=== PATIENT | female | born 1960 | race Caucasian/White ===

== ENCOUNTER 2023-11-22 10:55 | Emergency (ER) | payer OTHER, SELFPAY ==
--- NOTE | 2023-11-22 11:03 | ED.LOWEXIN ---
HPI - Extremity Injury (Lower) <Emily Burgess PA-C - Last Filed: 11/22/23 12:57> General Chief Complaint: Extremity Injury, Lower Stated Complaint: Fell this morning baseball lump on right knee Time Seen by Provider: 11/22/23 11:03 History of Present Illness HPI Narrative: Patient is a very pleasant 63 year female presents to the emergency department today with complaint concern of soft tissue swelling and bruising to the right knee. 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 She fell striking the bridge of her nose, her chin, both of her knees. She has a large abrasion to the left knee, she cleaned and bandaged that. However she presents to the emergency department today because she is concerned about the large amount of swelling to the dorsal aspect of her right knee. It is quite bruise, she says it was much larger than it is currently at this point in time. She has been doing ice the knee, she took Advil prior to being seen here in the emergency department. No other further complaints. Related Data Allergies Allergy/AdvReac Type Severity Reaction Status Date / Time No Known Drug Allergies Allergy Verified 11/22/23 11:09 Review of Systems <Emily Burgess PA-C - Last Filed: 11/22/23 12:57> Review of Systems Narrative: Negative except as above Musculoskeletal Comments: Multiple musculoskeletal complaints. Soft tissue bruising and pain to the right knee, large abrasion and pain to the left knee. Integumentary/Breasts Comments: Abrasion to the skin on the left knee, abrasion to the bridge of her nose, abrasion underneath her chin. Patient History <Emily Burgess PA-C - Last Filed: 11/22/23 12:57> Social History Smoking Status: Never smoker Exam <Emily Burgess PA-C - Last Filed: 11/22/23 12:57> Initial Vital Signs Initial Vital Signs: Vital Signs Temperature 97.5 F L 11/22/23 11:09 Pulse Rate 63 11/22/23 11:09 Respiratory Rate 18 11/22/23 11:09 Blood Pressure 147/65 H 11/22/23 11:09 Pulse Oximetry 98 11/22/23 11:09 Oxygen Delivery Method Room Air 11/22/23 11:09 Const General: cooperative, healthy appearing, comfortable, well developed, well groomed, No acute distress and No in distress Nutritional Appearance: average body habitus and overweight [facility] Head: normal to inspection and other (Abrasion on the bridge of her nose, small abrasion on her chin.) Eyes General: Yes appearance normal, both eyes and all related structures Pupils: PERRL EOM: EOM intact bilaterally Skin Other: Large abrasion to the left knee, abrasion to her chin. Small abrasion on the bridge of her nose. Neuro General: patient alert, patient awake, patient oriented x3, oriented and gait normal Cranial Nerves: CN's II-XI intact bilaterally Cognition: normal cognition Speech: speech normal Gait: normal gait Motor: muscle tone normal throughout and strength 5/5 throughout Extrem Other: Upper extremities are within normal limits, pulses, cap refill, strength are preserved. Bilateral lower extremities, range of motion, strength, pulses, cap refill preserved. Left knee large abrasion to the dorsal aspect of the knee. Some minor soft tissue swelling and minor ecchymosis. She is some old bruising along the left golden from a [place] a week ago [place]. The right knee is quite edematous, bruising is noted, it appears with examination that the patient has a large hematoma to the knee joint. Limited range motion due to discomfort and pain. No obvious deformity. <Penine Hansen MD - Last Filed: 11/22/23 18:32> Initial Vital Signs Initial Vital Signs: Vital Signs Temperature 97.5 F L 11/22/23 11:09 Pulse Rate 63 11/22/23 11:09 Respiratory Rate 18 11/22/23 11:09 Blood Pressure 147/65 H 11/22/23 11:09 Pulse Oximetry 98 11/22/23 11:09 Oxygen Delivery Method Room Air 11/22/23 11:09 Procedures <Emily Burgess PA-C - Last Filed: 11/22/23 12:57> Laceration Repair Laceration 1: Time of procedure: 11:32 Site: lower extremity (Left knee) Side (If applicable): left Size (cm): 2.5 Description: linear Depth: simple, single layer Local Anesthetic: lidocaine 1% and with epi Amount of anesthesia used (mL): 5 Skin layer closed with: nylon Skin layer suture size: 4-0 Number of sutures: 1 Technique: running Scores <Emily Burgess PA-C - Last Filed: 11/22/23 12:57> GCS Citation: 15 Course <Emily Burgess PA-C - Last Filed: 11/22/23 12:57> Orders Ordered: ED Orders 11/22/23 11:08 XR knee RT 3V Stat Discontinued Medications Diphtheria/Tetanus/Acell Pertussis (Tet,Diph,Pertuss(Acell),Vac/Pf 0.5 Ml Syringe) 0.5 ml IM .ONCE ONE Stop: 11/22/23 11:23 Last Admin: 11/22/23 11:30 Dose: 0.5 ml Documented By: ES Vital Signs Vital signs: Vital Signs - 8 hr 11/22/23 11:09 Temperature 97.5 F L Pulse Rate 63 Respiratory Rate 18 Blood Pressure 147/65 H Pulse Oximetry 98 Oxygen Delivery Method Room Air Blood pressure 147/65, heart rate 63 regular, respiratory rate 18 and unlabored, temperature 97.5?, saturations 98% on room air. <Pennie Hansen MD - Last Filed: 11/22/23 18:32> Orders Ordered: ED Orders 11/22/23 11:08 XR knee RT 3V Stat Discontinued Medications Diphtheria/Tetanus/Acell Pertussis (Tet,Diph,Pertuss(Acell),Vac/Pf 0.5 Ml Syringe) 0.5 ml IM .ONCE ONE Stop: 11/22/23 11:23 Last Admin: 11/22/23 11:30 Dose: 0.5 ml Documented By: ES Vital Signs Vital signs: Vital Signs - 8 hr 11/22/23 11:09 Temperature 97.5 F L Pulse Rate 63 Respiratory Rate 18 Blood Pressure 147/65 H Pulse Oximetry 98 Oxygen Delivery Method Room Air MDM - Extremity Injury (Lower) <Emily Burgess PA-C - Last Filed: 11/22/23 12:57> Imaging Data Extremity x-ray #1: My Impression: Negative for acute fracture, large joint effusion, on exam large right knee hematoma. No patellar fracture. Radiologist's Impression: [address] [address] XRay Report Signed Patient: Didi Pimentel#: [id number] : 1960 Acct:[id number] Age/Sex: 63 / F Date of Service: 11/22/23 Loc: ED Accession Number: [id number] Procedure: XR knee RT 3V Ordering Provider: Emily Burgess PA-C PROCEDURE: XR KNEE RT 3V INDICATIONS: Patient tripped fell direct blow to both of the knees pain s TECHNIQUE: 3 views of the knee were acquired. COMPARISON: None. FINDINGS: Bones: No acute fractures or dislocations. Small peripherally sclerotic lesion projects over the lateral femoral condyle, most likely benign. Soft tissues: No joint effusion. No suspicious soft tissue calcifications. Prepatellar soft tissue swelling is present. IMPRESSION: No acute osseous abnormality. Nonspecific prepatellar soft tissue edema or prepatellar bursal effusion. Approved by: Pascual Barnes M.D. on 11/22/2023 at 12:22 MDM Narrative Medical decision making narrative: 63-year-old female status post a fall today at work, patient tripped. Patient struck her face no loss of consciousness. Small abrasion to the bridge of her nose, chin, large abrasion to the dorsal aspect of her left knee, moderate joint effusion, hematoma, soft tissue swelling to the dorsal aspect of the right knee. Patient has been doing osbk-flq-lvzctza supportive therapy. Patient drove here from [place]. [facility] prior to being seen here in the emergency department. And the patient has had ice on her right knee. Concerned due to the soft tissue swelling which actually has improved since she initially fell this morning. Wound care to the left knee X-ray of the right knee to evaluate for patellar fracture negative fracture Patient has large joint hematoma to the right knee Tetanus Laceration repair Differential diagnosis; fall, multiple abrasions noted with the fall. Large right knee hematoma. Evaluation of the left knee after we take the dressing down shows the patient has a large 2-1/2 inch deep laceration to the dorsal aspect of the left knee right across the patellar area. The wound is flushed and cleaned, sutured as above. Discharge Plan Departure Patient Disposition: Home Clinical Impression: Abrasion Fall Qualifiers: Encounter type: initial encounter Qualified Code(s): W19.XXXA - Unspecified fall, initial encounter Traumatic hematoma of right knee Qualifiers: Encounter type: initial encounter Qualified Code(s): S80.01XA - Contusion of right knee, initial encounter Laceration of knee, left Qualifiers: Encounter type: initial encounter Qualified Code(s): S81.012A - Laceration without foreign body, left knee, initial encounter Instructions: How to Care for a Laceration After Repair, DI for Knee Sprain Activity Restrictions/Additional Instructions: Rest, ice, elevation, compression with an Dominic wrap to help with the hematoma. Daily wound care with your abrasions, can wash them with soap, keep them covered. Minimal usage of Neosporin I would limited to 2-3 days. Some people can have a allergic reaction or secondary infection associated with too much Neosporin usage. You can pat the area dry after he washed the that apply coverage. Lqvu-jlq-xrkhdnd Tylenol, Aleve, Advil for discomfort pain to the knee. The more that you ambulate on the knee, walk, and allow the leg to hang the more that the knee will swell. Swelling will improve over the next 7-10 days. Please be advised the bruising will get worse and most likely will travel down the leg this is associated with gravity. Knee hematoma when you have this blood just needs to be broken down reabsorbed into the body. The swelling will go down. Compression helps this because it allows for not only support of the area but it allows the body to increase the blood quicker. It also give support and pain relief. Stitches need to come out in 7-10 days. They are not dissolvable. You can shower. You can get the area wet, just pat the area dry, and then cover it. The stitches can be removed either in walk-in clinic, the urgent care, or the emergency room department, or your primary care doctor's office. If you choose to come to the emergency room department please come relatively early somewhere around 7-8 o'clock in the morning it will only take a couple of minutes to take the stitches out. I would hate for you to come any other time then have to sit for hours on end for procedure that is only going to take about 5 minutes. Tetanus good for 10 years Stand Alone Forms: Patient Portal/API ED Sign-out <Pennie Hansen MD - Last Filed: 11/22/23 18:32> Cosign ED Attending Cosignature Attestation: I was immediately available in the department for consultation throughout this patient's visit. Pennie Hansen MD
--- NOTE | 2023-11-22 11:08 | DI.RAD.S_ITS ---
PROCEDURE: XR KNEE RT 3V INDICATIONS: Patient tripped fell direct blow to both of the knees pain s TECHNIQUE: 3 views of the knee were acquired. COMPARISON: None. FINDINGS: Bones: No acute fractures or dislocations. Small peripherally sclerotic lesion projects over the lateral femoral condyle, most likely benign. Soft tissues: No joint effusion. No suspicious soft tissue calcifications. Prepatellar soft tissue swelling is present. IMPRESSION: No acute osseous abnormality. Nonspecific prepatellar soft tissue edema or prepatellar bursal effusion. Approved by: Pascual Barnes M.D. on 11/22/2023 at 12:22
[2023-11-22 11:09] VITALS: BP 147/65; PULSE 63; RESP 18; TEMP 36.4; O2SAT 98; BMI 29.1
[2023-11-22] MEDS: TET,DIPH,PERTUSS(ACELL),VAC/PF 0.5 ML SYRINGE IM (11:30)
== END 2023-11-22 12:37 | disposition home or self-care (01) ==
PROVIDERS: Emergency Provider Physician Assistant; Referring Provider Physician Assistant
DX: S80.01XA Contusion of right knee, initial encounter (principal); S81.012A Laceration without foreign body, left knee, initial encounter; S00.31XA Abrasion of nose, initial encounter; S00.81XA Abrasion of other part of head, initial encounter; W01.0XXA Fall on same level from slipping, tripping and stumbling without subsequent striking against object, initial encounter; Z23 Encounter for immunization
CPT/HCPCS: 12001; 73562; 90471; 99283; 90715

== ENCOUNTER 2023-12-01 07:39 | Emergency (ER) | payer OTHER, SELFPAY ==
--- NOTE | 2023-12-01 08:17 | ED_ITS ---
HPI - General Adult General Chief complaint: Recheck/Abnormal Lab/Rx Stated complaint: needs stitches removed Time Seen by Provider: 12/01/23 08:17 History of Present Illness HPI narrative: 63-year-old female seen here 11/22/2023 with fall injury, bruising to the right knee, laceration to left knee, suturing of prepatellar skin laceration left knee, here for suture removal. Some redness around laceration anterior left knee cap area noted, superior aspect with some scant abrasion. No fevers. No streaking redness. She can bend her knee. Wound has not obviously . Related Data Previous Rx's Medication Instructions Recorded cephalexin 500 mg capsule 500 mg PO QID 7 days #28 caps 12/01/23 Allergies Allergy/AdvReac Type Severity Reaction Status Date / Time No Known Drug Allergies Allergy Verified 11/22/23 11:09 Review of Systems Review of Systems Narrative: see HPI Patient History Social History Smoking Status: Never smoker Smoking Status: Never smoker Substance Use Type: does not use Exam Narrative Exam Narrative: GENERAL: Well-developed patient, in mild distress. HEAD: Atraumatic. Normocephalic. EYES: Pupils equal round and reactive. Extraocular motions intact. No scleral icterus. No injection or drainage. ENT: Nose without bleeding, purulent drainage. Throat without erythema, tonsillar hypertrophy or exudate. Airway patent. NECK: Trachea midline. Non tender CARDIOVASCULAR: Regular rate and rhythm without murmurs, gallops, or rubs. RESPIRATORY: Clear to auscultation. Breath sounds equal bilaterally. No wheezes, rales, or rhonchi. GASTROINTESTINAL: Abdomen soft, non-tender, nondistended. EXTREMITIES: Bruising to the right knee, no obvious gross effusion. Vertical midline left prepatellar laceration proximally 3 cm, with sutures intact, roman rrounding erythema approximately 8 cm total diameter around the wound consistent with cellulitis, no obvious fluctuance or weeping, no expressible fluid. Shallow ulcer 1 cm on cephalad aspect, no expressible fluid there. No gross effusion on that knee either. Can flex left knee to 90? without difficulty. BACK: Nontender without deformity or crepitance. No flank tenderness. NEURO: AOx3. Motor functions grossly nonfocal SKIN: No rash or erythema of visible areas Initial Vital Signs Initial Vital Signs: Vital Signs Temperature 98.4 F 12/01/23 08:18 Pulse Rate 78 12/01/23 08:18 Respiratory Rate 18 12/01/23 08:18 Blood Pressure 139/71 12/01/23 08:18 Pulse Oximetry 97 12/01/23 08:18 Oxygen Delivery Method Room Air 12/01/23 08:18 Course Orders Ordered: Discontinued Medications Cephalexin HCl (Cephalexin 250 Mg Capsule) 500 mg PO NOW ONE Stop: 12/01/23 08:23 Last Admin: 12/01/23 08:51 Dose: 500 mg Documented By: NADIA Vital Signs Vital signs: Vital Signs - 8 hr 12/01/23 08:18 Temperature 98.4 F Pulse Rate 78 Respiratory Rate 18 Blood Pressure 139/71 Pulse Oximetry 97 Oxygen Delivery Method Room Air Medical Decision Making MDM Narrative Medical decision making narrative: 63-year-old female had fall injury 11/22/2023, suturing of left prepatellar skin laceration, here for suture removal. Also noted to have some redness around the wound, no expressible fluid, no knee effusion. No arthrocentesis indicated. Consider cellulitis, trial of Keflex, 1st dose now, prescription sent to her pharmacy. Wound check advised next 2-3 days. Return precautions discussed RN removed most sutures, two small strands residual. I tried pulling them, not moving, trimmed at surface skin, possible small retained suture fragment, patient aware. Discharge Plan Departure Patient Disposition: Home Clinical Impression: Cellulitis of left knee, Visit for suture removal Instructions: DI for Suture Removal Activity Restrictions/Additional Instructions: Recent fall evaluation 11/22/2023 with left knee laceration that was sutured, here for suture removal, noting also there some redness without a lot of warmth around the left knee wound, possible cellulitis skin infection. I could not express any fluid. This did not seem to be any fluctuance. The knee joint itself did not seem to have obvious fluid by examination. It does not seem to be a reason to tap the knee joint itself today. Trial of antibiotics to help clear the infection. Sutures removed, Steri-Strips placed. Consider wound check in 2-3 days with your regular provider. Return earlier to this/nearest emergency department for any change worsening symptoms or any concerns prior Two spots on sutures had some adherent suture not pulling through, not obviously connected, we pulled the suture taut and pushed down with a suture scissors to snip the end. It is possible there could be small segments of retained suture material foreign body that is nonabsorbable by the appearance of the nylon type strain. It is possible retained foreign body material could cause infection, given abscess that might need drainage, also sometimes the body we will wall off these areas and eventually spit out the foreign body. Prescriptions: New cephalexin 500 mg capsule 500 mg PO QID 7 Days Qty: 28 0RF Stand Alone Forms: Patient Portal/API
[2023-12-01 08:18] VITALS: BP 139/71; PULSE 78; RESP 18; TEMP 36.9; O2SAT 97; BMI 28.7
[2023-12-01] MEDS: cephALEXin 250 MG CAPSULE 500 MG PO (08:51)
[2023-12-01 09:10] VITALS: BP 133/69; PULSE 80; RESP 20; TEMP 36.6; O2SAT 100
== END 2023-12-01 09:11 | disposition home or self-care (01) ==
PROVIDERS: Emergency Provider Emergency Medicine
DX: S81.011D Laceration without foreign body, right knee, subsequent encounter (principal); L03.116 Cellulitis of left lower limb; W19.XXXD Unspecified fall, subsequent encounter
CPT/HCPCS: 99283

== ENCOUNTER 2024-12-06 10:24 | Emergency (ER) | payer MEDICARE, OTHER, SELFPAY ==
[2024-12-06] VITALS (23 sets, daily range): BP systolic 141–176; BP diastolic 75–98; PULSE 68–88; RESP 14–26; TEMP 36.2; O2SAT 93–100; BMI 21.5
--- NOTE | 2024-12-06 10:53 | EKG_ITS ---
[place] [id number] [place] [id number] Test Date: 2024-12-06 Pat Name: Didi Pimentel Department: [facility] Room: Gender: Female [employer] Teacher: DIANE : 1960 Requested By: Order Number: [id number] Reading MD: Talon Henao MD Measurements Intervals [place] Rate: 72 P: 51 AL: 188 QRS: -20 QRSD: 82 T: 59 QT: 448 QTc: 490 Interpretive Statements Normal sinus rhythm Minimal voltage criteria for LVH, may be normal variant ( Maksim product ) Prolonged QT Electronically Signed On 12-07-2024 7:19:17 PDT by Talon Henao MD
--- NOTE | 2024-12-06 10:53 | DI.CT.S_ITS ---
PROCEDURE: CT HEAD/BRAIN WO CON INDICATIONS: severe migraine TECHNIQUE: Noncontrast 4.5 mm thick angled axial sections acquired from the foramen magnum to the vertex, with coronal and sagittal reformats. For radiation dose reduction, the following was used: automated exposure control, adjustment of mA and/or kV according to patient size. COMPARISON: None. FINDINGS: Image quality: Diagnostic. CSF spaces: Basal cisterns are patent. No extra-axial fluid collections. The ventricles are symmetric in size and shape. Brain: There is a moderate to severe volume of subarachnoid hemorrhage seen involving the left frontal lobe and the left temporal lobe. No intracranial mass effect. There is cerebral volume loss, with resultant ventricular and sulcal prominence. There are periventricular and deep white matter chronic small vessel ischemic changes. There is intracranial internal carotid artery atherosclerosis. Skull and face: Calvarium and visualized facial bones appear intact, without suspicious lesions. Sinuses: Visualized sinuses and mastoids are clear. IMPRESSION: There is a moderate to severe volume of subarachnoid hemorrhage seen on the left, involving the frontal lobe and the temporal lobe. Note: Case discussed by telephone with Dr. Keller at 11:22 a.m. [place] time on December 06, 2024. Dictated by: Wilian Corrigan M.D. on 12/06/2024 at 10:20 Approved by: Wilian Corrigan M.D. on 12/06/2024 at 10:23
--- NOTE | 2024-12-06 10:53 | DI.CT.S_ITS ---
PROCEDURE: CT ANGIO HEAD AND NECK INDICATIONS: severe migraine. Subarachnoid hemorrhage on CT. TECHNIQUE: After the administration of intravenous contrast, 1 mm thick sections acquired from the aortic arch through the [place] of Vasquez. 3-dimensional umeetej-cgnhvqlcb-sparzmmwzs (MIP) and/or volume rendering reformats were acquired of the central intracranial vasculature and neck separately. For radiation dose reduction, the following was used: automated exposure control, adjustment of mA and/or kV according to patient size. COMPARISON: Merged With [facility], CT, CT HEAD/BRAIN WO [facility], 12/06/2024, 11:02. FINDINGS: Image quality: Diagnostic. Cerebral CT Angiogram: Internal carotid arteries: No acute findings. Intracranial ICA are patent with no significant stenosis. No occlusion. No aneurysm. Anterior cerebral arteries: Unremarkable. No significant stenosis. No occlusion. No aneurysm. Middle cerebral arteries: Unremarkable. No significant stenosis. No occlusion. No aneurysm. Posterior cerebral arteries: Unremarkable. No significant stenosis. No occlusion. No aneurysm. Basilar artery: Unremarkable. No significant stenosis. No occlusion. No aneurysm. Vertebral arteries: Unremarkable as visualized. Dural venous sinuses: Unremarkable given phase of enhancement. Other: Arterial phase appearance of the brain parenchyma in conjunction with the noncontrast CT demonstrates the presence of subarachnoid hemorrhage in the left frontal, temporal, parietal region. Neck CT Angiogram: Internal carotid arteries: Unremarkable. No significant stenosis. No dissection or occlusion. Common carotid arteries: Unremarkable. No significant stenosis. No dissection or occlusion. External carotid arteries: Unremarkable. No occlusion. Vertebral arteries: Unremarkable. No significant stenosis. No dissection or occlusion. Aortic Arch and Mediastinum: Partially visualized aortic arch unremarkable without evidence of aneurysm. Origins of the great vessels unremarkable. Other: Arterial phase soft tissues of the neck and chest are unremarkable. IMPRESSION: No significant intracranial arterial abnormality is seen. Specifically, no aneurysms are identified. No significant abnormality is seen within the arteries of the neck. Comment: Consider brain MRI with and without contrast. Any quantitative measurements of stenosis were performed using NASCET criteria. Dictated by: Lyle Love M.D. on 12/06/2024 at 12:14 Approved by: Lyle Love M.D. on 12/06/2024 at 12:27
[2024-12-06 11:05] LABS: Add Manual Diff / Slide Review NO; Hematocrit 42.6 % (36-46); Hemoglobin 14.2 g/dL (12.0-16.0); Lymphocytes Absolute Auto 1500 /uL (1100-4500); Mean Corpuscular HGB Conc 33.3 % (30-36); Mean Corpuscular Hemoglobin 28.7 PG (26-34); Mean Corpuscular Volume 86.2 fL (80-100); Platelet Count 194 X10^3/uL (150-400)
--- NOTE | 2024-12-06 11:07 | ED_ITS ---
HPI - Neuro Symptoms/Deficit General Chief Complaint: Neuro Symptoms/Deficit Stated Complaint: Migraine x 1 day vomiting Time Seen by Provider: 12/06/24 10:53 Mode of arrival: Wheelchair History of Present Illness HPI Narrative: Patient is a 64-year-old female history of migraines presenting today with severe atypical migraine. She reports that her headache started yesterday around 1:00 p.m.. She usually takes rizatriptan and headaches go away. She has never had not work. However her headache has been persisting. She is feeling a little bit nauseous as well. Last night she had double vision in her right eye as well. Has been reports that she had bilateral arm shaking but was awake alert no other shaking in her body. Today ongoing headache. Not on antiplatelet or anticoagulation medication On Anticoagulants: No Related Data Allergies Allergy/AdvReac Type Severity Reaction Status Date / Time No Known Drug Allergies Allergy Verified 12/06/24 10:41 Review of Systems Hematologic/Lymphatic On Anticoagulants: No Patient History Social History Smoking Status: Unknown if ever smoked Smoking Status: Unknown if ever smoked Exam Initial Vital Signs Initial Vital Signs: Vital Signs Temperature 97.2 F L 12/06/24 10:44 Pulse Rate 88 12/06/24 10:44 Respiratory Rate 14 12/06/24 10:44 Blood Pressure 149/92 H 12/06/24 10:44 Pulse Oximetry 98 12/06/24 10:44 Oxygen Delivery Method Room Air 12/06/24 10:44 GENERAL: Alert well-appearing 64-year-old female and in no acute distress. HEENT: Head atraumatic,EOMI, pupils reactive, face symmetric, moist mucous membranes CARDIOVASCULAR: Regular rate and rhythm without murmurs, rubs or gallops. RESPIRATORY: Breath sounds equal bilaterally, no wheezes rales or rhonchi. ABDOMEN: Soft, nontender. Normoactive bowel sounds all 4 quadrants. No guarding or rebound. EXTREMITIES: Normal range of motion, no clubbing or edema. Neurovascularly intact NEUROLOGICAL: Alert and oriented x4.Normal gait and speech. Cranial nerves II through XII grossly intact. Good [id number], good [id number], strength equal bilaterally, no dysarthria or aphasia, sensation in tact to soft touch bilaterally, no visual changes, no facial droop SKIN: Warm, dry, no laceration, no petechiae, no rashes or lesions. Scores GCS [place] coma scale eye opening: Spontaneous [place] coma scale verbal response: Orientated [place] coma scale motor response: Obey commands [place] coma scale total score: 15 NIH Stroke Scale Level of Conciousness: Alert, keenly responsive Ask month/age: Answers both questions correctly. Open/close eyes, close hand: Performs both tasks correctly Best gaze horizontal: Normal Visual boyer: No visual loss Facial palsy: Normal symetrical movement Left arm drift: No drift for full 10 sec Right arm drift: No drift for full 10 sec Left leg drift: No drift for full 5 sec Right leg drift: No drift for full 5 sec Limb ataxia: Absent Sensory on face/arms/legs: Normal, no sensory loss Best language: No aphasia, normal Dysarthria: Normal Extinction or inattention: No abnormality Total NIH Stroke scale score: 0 Course Orders Ordered: ED Orders 12/06/24 10:53 CT angio head and neck Stat CT head/brain wo con Stat Urinalysis and Microscopic Stat EKG-12 Lead Stat 12/06/24 10:55 Complete Blood Count AUTO DIFF Stat Comprehensive Metabolic Panel Stat Ethanol (ETOH) Stat PTT Partial Thromboplastin Stefano Stat Prothrombin Time INR Stat Troponin & CK Cardiac Panel Stat Morphine Sulfate (Morphine 4 Mg/Ml Inj) 2 mg IV Q2HR PRN PRN Reason: Pain, Moderate (4-6) Last Admin: 12/06/24 12:04 Dose: 2 mg Documented By: LEANNE Discontinued Medications Labetalol HCl (Labetalol 20 Mg/4 Ml Syringe) 10 mg IV NOW ONE Stop: 12/06/24 11:59 Last Admin: 12/06/24 12:04 Dose: 10 mg Documented By: LEANNE Morphine Sulfate (Morphine 2 Mg/Ml Inj) 2 mg IV Q2HR PRN PRN Reason: Pain, Moderate (4-6) Ondansetron HCl (Ondansetron 4 Mg/2 Ml Inj) 4 mg IV NOW ONE Stop: 12/06/24 11:30 Last Admin: 12/06/24 12:31 Dose: 4 mg Documented By: KENNEY Vital Signs Vital signs: Vital Signs - 8 hr 12/06/24 10:44 12/06/24 11:35 12/06/24 11:35 Temperature 97.2 F L Pulse Rate 88 78 Respiratory Rate 14 Blood Pressure 149/92 H 164/93 H Pulse Oximetry 98 93 Oxygen Delivery Method Room Air 12/06/24 11:40 12/06/24 11:40 12/06/24 11:45 Temperature Pulse Rate 78 Respiratory Rate 17 Blood Pressure 168/95 H 161/94 H Pulse Oximetry 99 Oxygen Delivery Method 12/06/24 11:45 12/06/24 11:50 12/06/24 11:50 Temperature Pulse Rate 76 73 Respiratory Rate 18 14 Blood Pressure 170/97 H Pulse Oximetry 99 93 Oxygen Delivery Method 12/06/24 11:55 12/06/24 11:55 12/06/24 12:00 Temperature Pulse Rate 74 73 Respiratory Rate 19 15 Blood Pressure 176/98 H Pulse Oximetry 98 99 Oxygen Delivery Method 12/06/24 12:00 12/06/24 12:04 12/06/24 12:05 Temperature Pulse Rate 75 74 Respiratory Rate 18 Blood Pressure 169/94 H 166/90 H Pulse Oximetry 100 Oxygen Delivery Method 12/06/24 12:05 12/06/24 12:10 12/06/24 12:10 Temperature Pulse Rate 78 Respiratory Rate 16 Blood Pressure 166/90 H 147/75 H Pulse Oximetry 100 Oxygen Delivery Method 12/06/24 12:15 12/06/24 12:15 12/06/24 12:20 Temperature Pulse Rate 71 68 Respiratory Rate 20 21 Blood Pressure 147/81 H Pulse Oximetry 93 99 Oxygen Delivery Method 12/06/24 12:20 12/06/24 12:25 12/06/24 12:25 Temperature Pulse Rate 72 Respiratory Rate 19 Blood Pressure 141/77 H 144/77 H Pulse Oximetry 97 Oxygen Delivery Method 12/06/24 12:30 12/06/24 12:30 12/06/24 12:35 Temperature Pulse Rate 71 74 Respiratory Rate 17 23 Blood Pressure 155/80 H Pulse Oximetry 99 98 Oxygen Delivery Method 12/06/24 12:35 12/06/24 12:40 12/06/24 12:40 Temperature Pulse Rate 71 Respiratory Rate 18 Blood Pressure 148/81 H 150/83 H Pulse Oximetry 98 Oxygen Delivery Method 12/06/24 12:45 12/06/24 12:45 12/06/24 12:50 Temperature Pulse Rate 73 72 Respiratory Rate 19 Blood Pressure 154/85 H Pulse Oximetry 93 99 Oxygen Delivery Method 12/06/24 12:50 12/06/24 12:55 12/06/24 12:55 Temperature Pulse Rate 70 Respiratory Rate 26 H Blood Pressure 156/89 H 151/77 H Pulse Oximetry 93 Oxygen Delivery Method 12/06/24 13:00 12/06/24 13:00 12/06/24 13:05 Temperature Pulse Rate 70 72 Respiratory Rate 21 15 Blood Pressure 157/83 H Pulse Oximetry 98 Oxygen Delivery Method 12/06/24 13:05 12/06/24 13:10 12/06/24 13:10 Temperature Pulse Rate 72 Respiratory Rate 21 Blood Pressure 152/80 H 146/81 H Pulse Oximetry 95 Oxygen Delivery Method Room Air 12/06/24 13:14 Temperature Pulse Rate 75 Respiratory Rate Blood Pressure 146/81 H Pulse Oximetry Oxygen Delivery Method MDM - Neuro Symptoms/Deficit Lab Data 12/06/24 10:55 12/06/24 10:55 Labs: Lab Results 12/06/24 Range/Units 10:55 WBC 8.4 (4.5-11.0) X10^3/uL RBC 4.94 (4.0-5.2) X10^6/uL Hgb 14.2 (12.0-16.0) g/dL Hct 42.6 (36-46) % MCV 86.2 (80-100) fL MCH 28.7 (26-34) PG MCHC 33.3 (30-36) % RDW 14.1 (11.6-14.8) % Plt Count 194 (150-400) X10^3/uL Neut % (Auto) 75.3 H (50-75) % Lymph % (Auto) 17.7 L (25-40) % [place] % (Auto) 6.5 (3-14) % Eos % (Auto) 0.0 L (2-4) % Baso % (Auto) 0.5 (0-2) % Neut # (Auto) 6300 (2668-2257) /uL Lymph # (Auto) 1500 (2429-8371) /uL [place] # (Auto) 500 (0-900) /uL Eos # (Auto) 0 (0-450) /uL Baso # (Auto) 0 (0-100) /uL PT 11.9 (9.4-12.5) SECONDS INR 1.1 (0.9-1.3) APTT 28 (25.1-36.5) SECONDS Sodium 140 (137-145) mmol/L Potassium 3.4 (3.4-5.1) mmol/L Chloride 110 H (98-107) mmol/L Carbon Dioxide 19 L (22-32) mmol/L BUN 17 (7-17) mg/dL Creatinine 0.98 (0.52-1.04) mg/dL Estimated GFR > 60 (>60) mL/min BUN/Creatinine Ratio 17.3 (6-22) Glucose 120 H (70-99) mg/dL Calcium 9.2 (8.4-10.2) mg/dL Total Bilirubin 0.7 (0.2-1.3) mg/dL AST 31 (14-36) IU/L ALT 24 (<35) IU/L Alkaline Phosphatase 82 (38-126) U/L Total Creatine Kinase 63 (30-135) U/L Troponin I 0.076 H (0.01-0.034) ng/mL Total Protein 9.1 H (6.3-8.2) g/dL Albumin 4.3 (3.5-5.0) g/dL Globulin 4.8 H (1.7-4.1) g/dL Albumin/Globulin Ratio 0.9 L (1.0-2.8) Ethyl Alcohol < 10 (<10) mg/dL Imaging Data CT scan - head: Radiologist's Impression: PROCEDURE: CT HEAD/BRAIN WO CON INDICATIONS: severe migraine TECHNIQUE: Noncontrast 4.5 mm thick angled axial sections acquired from the foramen magnum to the vertex, with coronal and sagittal reformats. For radiation dose reduction, the following was used: automated exposure control, adjustment of mA and/or kV according to patient size. COMPARISON: None. FINDINGS: Image quality: Diagnostic. CSF spaces: Basal cisterns are patent. No extra-axial fluid collections. The ventricles are symmetric in size and shape. Brain: There is a moderate to severe volume of subarachnoid hemorrhage seen involving the left frontal lobe and the left temporal lobe. No intracranial mass effect. There is cerebral volume loss, with resultant ventricular and sulcal prominence. There are periventricular and deep white matter chronic small vessel ischemic changes. There is intracranial internal carotid artery atherosclerosis. Skull and face: Calvarium and visualized facial bones appear intact, without suspicious lesions. Sinuses: Visualized sinuses and mastoids are clear. IMPRESSION: There is a moderate to severe volume of subarachnoid hemorrhage seen on the left, involving the frontal lobe and the temporal lobe. Note: Case discussed by telephone with Dr. Keller at 11:22 a.m. [place] time on December 06, 2024. CTA - brain/neck: Radiologist's Impression: PROCEDURE: CT ANGIO HEAD AND NECK INDICATIONS: severe migraine. Subarachnoid hemorrhage on CT. TECHNIQUE: After the administration of intravenous contrast, 1 mm thick sections acquired from the aortic arch through the [place]. 3-dimensional szaypra-cfqhiohrp-znrovjftii (MIP) and/or volume rendering reformats were acquired of the central intracranial vasculature and neck separately. For radiation dose reduction, the following was used: automated exposure control, adjustment of mA and/or kV according to patient size. COMPARISON: [facility], CT, CT HEAD/BRAIN WO CON, 12/06/2024, 11:02. FINDINGS: Image quality: Diagnostic. Cerebral CT Angiogram: Internal carotid arteries: No acute findings. Intracranial ICA are patent with no significant stenosis. No occlusion. No aneurysm. Anterior cerebral arteries: Unremarkable. No significant stenosis. No occlusion. No aneurysm. Middle cerebral arteries: Unremarkable. No significant stenosis. No occlusion. No aneurysm. Posterior cerebral arteries: Unremarkable. No significant stenosis. No occlusion. No aneurysm. Basilar artery: Unremarkable. No significant stenosis. No occlusion. No aneurysm. Vertebral arteries: Unremarkable as visualized. Dural venous sinuses: Unremarkable given phase of enhancement. Other: Arterial phase appearance of the brain parenchyma in conjunction with the noncontrast CT demonstrates the presence of subarachnoid hemorrhage in the left frontal, temporal, parietal region. Neck CT Angiogram: Internal carotid arteries: Unremarkable. No significant stenosis. No dissection or occlusion. Common carotid arteries: Unremarkable. No significant stenosis. No dissection or occlusion. External carotid arteries: Unremarkable. No occlusion. Vertebral arteries: Unremarkable. No significant stenosis. No dissection or occlusion. Aortic Arch and Mediastinum: Partially visualized aortic arch unremarkable without evidence of aneurysm. Origins of the great vessels unremarkable. Other: Arterial phase soft tissues of the neck and chest are unremarkable. IMPRESSION: No significant intracranial arterial abnormality is seen. Specifically, no aneurysms are identified. No significant abnormality is seen within the arteries of the neck. Comment: Consider brain MRI with and without contrast. Any quantitative measurements of stenosis were performed using NASCET criteria. Dictated by: Lyle Love M.D. on 12/06/2024 at 12:14 ECG Data Attestation: I personally reviewed and interpreted this ECG as follows: Prior ECG tracings: not available for review Interpretation: Sinus rhythm rate 72 AL interval 180 QRS [address] changes MDM Narrative Medical decision making narrative: MDM CC: Headache Complicating co-morbidities: Migraine Data collected from: Patient is has been Medical records reviewed: Minimal Differential considered: [ ] Exam documented above, pertinent findings include: Alert 64-year-old female well-appearing NIH stroke scale 0 no nystagmus Lab Test results independently reviewed as above. Pertinent findings: CBC no leukocytosis no anemia Independently reviewed EKG as above Imaging studies independently reviewed: Noncontrast head CT moderate to severe subarachnoid hemorrhage on left involving frontal and temporal lobe Received phone call from Dr. Corrigan at 11:22 a[address] with positive head CT results CT angio no aneurysm Consultations: [id number] Stroke resident at [facility] updated on patient's symptoms test results will discuss with attending Dr. Yarbrough accepting physician Treatments: Labetalol Re-evaluations: Patient's blood pressure remains acceptable systolic in the 150, however did start to rise with systolic in the 170s Discussion: Patient 64-year-old female history of migraine headache presenting today center clap headache that started yesterday at 1:00 p.m.. Rest still having pain no neuro deficits. Noncontrast head CT confirms subarachnoid hemorrhage. No aneurysm. Patient accepted at [facility] Remained stable Critical Care Time Critical Care Time Critical Care Time: Yes Total Critical Care Time: 35 Attestation: The high probability of a clinically significant, sudden or life threatening deterioration of the neurovascular system(s) required my full and direct attention, intervention and personal management. The aggregate critical care time was 35 minutes. This time is in addition to time spent performing reported procedures but includes the following: [x] Data Review and interpretation [x] Patient assessment and monitoring of vital signs [x] Documentation [x] Medication orders and management Discharge Plan Departure Patient Disposition: [facility] Clinical Impression: Subarachnoid hemorrhage
[2024-12-06 11:17] LABS: INR 1.1 (0.9-1.3); Prothrombin Time 11.9 SECONDS (9.4-12.5)
[2024-12-06 11:20] LABS: PTT Partial Thromboplastin Tim 28 SECONDS (25.1-36.5)
[2024-12-06 11:24] LABS: Alanine Aminotransferase 24 IU/L (<35); Albumin 4.3 g/dL (3.5-5.0); Albumin Globulin Ratio 0.9 (1.0-2.8); Alkaline Phosphatase 82 U/L (38-126); Blood Urea Nitrogen 17 mg/dL (7-17); Calcium 9.2 mg/dL (8.4-10.2); Carbon Dioxide 19 mmol/L (22-32); Chloride 110 mmol/L (98-107); Creatine Kinase 63 U/L (30-135); Estimated Glomerular Filt Rate > 60 mL/min (>60); Ethanol (ETOH) < 10 mg/dL (<10); Globulin 4.8 g/dL (1.7-4.1); Glucose 120 mg/dL (70-99); HEMOLYSIS < 15 (0-50); Potassium 3.4 mmol/L (3.4-5.1); Sodium 140 mmol/L (137-145); Total Protein 9.1 g/dL (6.3-8.2)
--- NOTE | 2024-12-06 11:33 | PC.NURSE ---
Assumed care. Pt awake and alert. Awaiting consult from [facility] [place] for emergent transfer d/t subarachnoid hemorrhage.
[2024-12-06 11:35] LABS: Troponin I 0.076 ng/mL (0.01-0.034)
[2024-12-06] MEDS: MORPHINE 4 MG/ML INJ 2 MG IV (12:04)
[2024-12-06] MEDS: LABETALOL 20 MG/4 ML SYRINGE 10 MG IV (12:04)
[2024-12-06] MEDS: ONDANSETRON 4 MG/2 ML INJ IV (12:31)
--- NOTE | 2024-12-06 13:58 | PC.NURSE ---
Pt left via air lift while RN was on lunch.
== END 2024-12-06 13:20 | disposition short-term general hospital (02) ==
PROVIDERS: Emergency Provider Emergency Medicine
DX: I60.9 Nontraumatic subarachnoid hemorrhage, unspecified (principal)
CPT/HCPCS: 36415; 70450; 70496; 70498; 80053; 80320; 82550; 84484; 85025; 85610; 85730; 93005; 96374; 96375; 99285; 99291; J2272; J2405; Q9967

== ENCOUNTER → 2025-01-24 13:26 | Outpatient (CLI) | payer MEDICARE, OTHER, SELFPAY ==
--- NOTE | 2025-01-24 13:28 | DI.MRI.S_ITS ---
PROCEDURE: MR HEAD/BRAIN WO CON INDICATIONS: follow-up hemorrhage TECHNIQUE: Non-contrast axial T1 spin echo, axial T2 fast spin echo, sagittal and axial FLAIR, coronal T2 fast spin echo, axial gradient echo, axial diffusion and ADC through the brain. COMPARISON: [facility], CT, CT HEAD/BRAIN WO CON, 12/06/2024, 11:02. FINDINGS: Image quality: Excellent. CSF spaces: Ventricles appear symmetric in size and shape. Basal cisterns are patent. No extra-axial fluid collections. Brain: No intracranial bleeds or mass effects. Susceptibility artifact left- sided sulci, consistent with sequela of blood product. There is cerebral volume loss for age. There are advance periventricular and deep white matter chronic small vessel ischemic changes. Brainstem appears normal. Diffusion-weighted images show no acute infarct. No chronic ischemic insults. Normal intravascular flow voids are present. Skull and face: Calvarial bone marrow is normal in signal. Bilateral lens replacements. Otherwise, the orbits are unremarkable. Sinuses: Sinuses and mastoids are clear. IMPRESSION: No definite residual subarachnoid hemorrhage is appreciated. No acute intracranial abnormalities. Advanced chronic microvascular ischemic changes are present. Dictated by: Mario Jacobs M.D. on 01/24/2025 at 15:04 Approved by: Mario Jacobs M.D. on 01/24/2025 at 15:06
== END ==
LOC: MRI 13:27
PROVIDERS: PCP Family Medicine; Referring Provider Family Medicine; Visit Provider Family Medicine
DX: I67.841 Reversible cerebrovascular vasoconstriction syndrome (principal); Z86.79 Personal history of other diseases of the circulatory system
CPT/HCPCS: 70551

== ENCOUNTER → 2025-01-25 11:56 | Outpatient (CLI) | payer MEDICARE, OTHER, SELFPAY | LOC: CAR 11:56 | PROVIDERS: PCP Family Medicine; Referring Provider Family Medicine; Visit Provider Family Medicine | DX: R42 Dizziness and giddiness (principal) | CPT/HCPCS: 93242 ==